=== PATIENT | female | born 1995 | race Caucasian/White ===

== ENCOUNTER 2017-10-01 04:18 | Emergency (ER) | payer OTHER ==
[2017-10-01] MEDS ORDERED: BENADRYL 50 MG/ML IV ONE (05:05)
[2017-10-01] MEDS ORDERED: Sodium Chloride 0.9% 1000 ML 1,000 ML IV STA ×2 (05:05→05:33)
[2017-10-01] MEDS ORDERED: Zofran 4 MG/2 ML VIAL IV ONE (05:05)
--- NOTE | 2017-10-01 05:08 | ERPHSYRPT ---
- History of Present Illness Time Seen by Provider: 10/01/17 05:07 Historian: patient Exam Limitations: no limitations Physician History: 22-year-old female came to the emergency room with complaining of lower abdominal pain associated with greenish color, vomiting. Patient denies any fever or chills. Symptoms started around 9 PM last night. Patient is currently having menstrual period. Timing/Duration: today Quality: cramping Abdominal Pain Onset Location: suprapubic Pain Radiation: no radiation Severity of Pain-Max: moderate Severity of Pain-Current: moderate Modifying Factors: Improves With: nothing Associated Symptoms: vomiting Previous symptoms: no prior history - Review of Systems Constitutional: No Fever, No Chills Eyes: No Symptoms Ears, Nose, & Throat: No Symptoms Respiratory: No Cough, No Dyspnea Cardiac: No Chest Pain, No Edema, No Syncope Abdominal/Gastrointestinal: Abdominal Pain, Nausea, Vomiting, No Diarrhea Genitourinary Symptoms: No Dysuria Musculoskeletal: No Back Pain, No Neck Pain Skin: No Rash Neurological: No Dizziness, No Focal Weakness, No Sensory Changes Psychological: No Symptoms Endocrine: No Symptoms All Other Systems: Reviewed and Negative - Physical Exam General Appearance: no apparent distress, alert Eye Exam: PERRL/EOMI, eyes nml inspection Ears, Nose, Throat Exam: normal ENT inspection, pharynx normal, moist mucous membranes Neck Exam: normal inspection, non-tender, supple, full range of motion Respiratory Exam: normal breath sounds, lungs clear, No respiratory distress Cardiovascular Exam: regular rate/rhythm, normal heart sounds Gastrointestinal/Abdomen Exam: soft, No tenderness, No mass Back Exam: normal inspection, normal range of motion, No CVA tenderness, No vertebral tenderness Extremity Exam: normal inspection, normal range of motion, pelvis stable Neurologic Exam: alert, oriented x 3, cooperative, normal mood/affect, nml cerebellar function, sensation nml, No motor deficits Skin Exam: normal color, warm, dry - Course Nursing assessment & vital signs reviewed: Yes Ordered Tests: Active Orders 24 hr Category Date Time Status AMYLASE Stat Lab 10/01/17 05:10 Completed CBC W DIFF Stat Lab 10/01/17 05:10 Completed CMP Stat Lab 10/01/17 05:10 Completed LIPASE Stat Lab 10/01/17 05:10 Completed Lactic Acid Stat Lab 10/01/17 05:05 Results UA W/RFX UR CULTURE Stat Lab 10/01/17 05:48 Received Medication Summary Generic Name Dose Route Start Last Admin Trade Name Yvette PRN Reason Stop Dose Admin Sodium Chloride 1,000 mls @ 999 mls/hr 10/01/17 05:05 10/01/17 05:34 Sodium Chloride 0.9% 1000 Ml IV 10/01/17 06:05 999 mls/hr .Q1H1M STA Administration Sodium Chloride 1,000 mls @ 999 mls/hr 10/01/17 05:33 Sodium Chloride 0.9% 1000 Ml IV 10/01/17 06:33 .Q1H1M STA Ceftriaxone Sodium/Dextrose 1 g in 50 mls @ 100 mls/hr 10/01/17 05:35 Rocephin 1 Gm-D5w 50 Ml Bag IV 10/01/17 06:04 STAT STA Discontinued Medications Generic Name Dose Route Start Last Admin Trade Name Yvette PRN Reason Stop Dose Admin Diphenhydramine HCl 25 mg 10/01/17 05:05 10/01/17 05:33 Benadryl 50 Mg/Ml IV 10/01/17 05:06 25 mg STAT ONE Administration Diphenhydramine HCl Confirm 10/01/17 05:32 Benadryl 50 Mg/Ml Administered 10/01/17 05:33 Dose 50 mg .ROUTE .STK-MED ONE Sodium Chloride Confirm 10/01/17 05:32 Sodium Chloride 0.9% 1000 Ml Administered 10/01/17 05:33 Dose 1,000 mls @ ud .ROUTE .STK-MED ONE Ondansetron HCl 4 mg 10/01/17 05:05 10/01/17 05:34 Zofran 4 Mg/2 Ml Vial IV 10/01/17 05:06 4 mg STAT ONE Administration Ondansetron HCl Confirm 10/01/17 05:31 Zofran 4 Mg/2 Ml Vial Administered 10/01/17 05:32 Dose 4 mg .ROUTE .STK-MED ONE Lab/Rad Data: Laboratory Result Diagrams 10/01/17 05:10 10/01/17 05:10 Laboratory Results 10/01/17 10/01/17 10/01/17 Range/Units 05:10 05:10 05:05 WBC 19.1 H (4.0-10.5) K/mm3 RBC 5.46 H (4.1-5.4) M/mm3 Hgb 13.5 (12.0-16.0) gm/dl Hct 40.3 (35-47) % MCV 73.8 L (78-100) fl MCH 24.7 L (26-32) pg MCHC 33.5 (32-36) g/dl RDW 14.7 H (11.5-14.0) % Plt Count 472 H (150-450) K/mm3 MPV 8.7 (6-9.5) fl Gran % 89.1 H (36.0-66.0) % Eos # (Auto) 0.03 (0-0.5) Absolute Lymphs (auto) 1.40 (1.0-4.6) Absolute Monos (auto) 0.63 (0.0-1.3) Lymphocytes % 7.3 L (24.0-44.0) % Monocytes % 3.3 (0.0-12.0) % Eosinophils % 0.2 (0.00-5.0) % Basophils % 0.1 (0.0-0.4) % Absolute Granulocytes 17.00 H (1.4-6.9) Basophils # 0.02 (0-0.4) Sodium 139 (137-145) mmol/L Potassium 4.1 (3.5-5.1) mmol/L Chloride 106 (98-107) mmol/L Carbon Dioxide 19 L (22-30) mmol/L Anion Gap 17.4 H (5-15) MEQ/L BUN 10 (7-17) mg/dL Creatinine 0.64 (0.52-1.04) mg/dL Estimated GFR > 60.0 ML/MIN Glucose 152 H (74-106) mg/dL Lactic Acid 3.4 H (0.4-2.0) Calcium 9.5 (8.4-10.2) mg/dL Total Bilirubin 0.30 (0.2-1.3) mg/dL AST 17 (14-36) U/L ALT 17 (0-35) U/L Alkaline Phosphatase 118 (38-126) U/L Serum Total Protein 7.3 (6.3-8.2) g/dL Albumin 4.3 (3.5-5.0) g/dL Amylase 39 (30-110) U/L Lipase 54 (23-300) U/L - Progress Progress: improved, pain not gone completely Counseled pt/family regarding: lab results, diagnosis, need for follow-up - Departure Time of Disposition: 07:00 Departure Disposition: Home Clinical Impression: Cystitis UTI (urinary tract infection) Qualifiers: Urinary tract infection type: acute cystitis Hematuria presence: without hematuria Qualified Code(s): N30.00 - Acute cystitis without hematuria Ovarian cyst Qualifiers: Laterality: unspecified laterality Qualified Code(s): N83.209 - Unspecified ovarian cyst, unspecified side Condition: Stable Critical Care Time: Yes Critical Care Time(excluding separately billable procedures): 30-74 minutes Referrals: DOCTOR,NO FAMILY [Primary Care Provider] - Instructions: Acute Abdomen (Belly Pain) Additional Instructions: ABDOMINAL PAIN 1. There are several different causes for abdominal pain, some of which may not be able to be identified on initial examination. 2. The important thing to remember is that bodily functions can change in a short period of time. If you notice any of the following symptoms, return to the emergency department or consult your doctor immediately: A. Worsening pain or no improvement in the next 12 hours. B. Increasing, severe abdominal pain C. Blood in stool D. Black stools E. Persistent vomiting F. Fever or chills or other symptoms URINARY TRACT INFECTION 1. You will need to drink plenty of fluids in order to keep your urinary system flushed. These fluids should mainly consist of water and juices. 2. Take medications as directed. You need to completely finish any antiobiotic prescription given. 3. Try to avoid coffee, tea, alcohol, and seasoned foods as they may cause bladder irritation. 4. If signs and symptoms persist after 3-4 days, you will need to follow up with your family physician. 5. Female Patients: A. Avoid intercourse for 3-4 days. B. Empty bladder before and after intercourse to reduce risk of re- infection. C. After emptying bladder, wipe from front to back to reduce the risk of re- infection. VOMITING AND DIARRHEA 1. Take only small amounts of clear, cool liquids at frequent intervals as tolerated for the next 24-48 hours. Avoid milk products and orange juice. Clear liquids are those liquids which you can see through. 2. Pedialyte and popsicles are recommended clear liquids. 3. If the condition worsens you should contact your family physician or return to the emergency department for re-evaluation. JAIR IGNACIO was seen on 10/01/17 n the Emergency Room. At that time you were treated for an emergent condition, during your visit Laboratory, Radiology and/or other procedures may have been ordered. It is very important that you follow-up with your Primary Care Physician NO FAMILY DOCTOR within the next 24-48 hours to review your Emergency Room visit and the final results of testing that was ordered. Some test results such as Urine Cultures, Blood Cultures, and other cultures if ordered will not be finalized for 24-48 hours. If you do not have a Primary Care Provider please call the medical records department at [phone] to obtain a copy of your results or you may sign into our patient portal to obtain these results by visiting us @ [email or web address] and completing the following steps: 1. Click on the Patient Portal link 2. Click the Patient Self Enrollment Link to complete the enrollment form and entering your 3. Once the enrollment form is completed you will receive an email with a temporary ID and password at the email address you provided. 4. Next choose a user name and password. Your user name must be at least 4 characters long and your password must be at least 4 characters long. 5. Choose a security question from the list and provide your answer to the question. If you already have signed into the Health Portal you may access your Health Care Information 11/10 by the following steps: 1. Login to our website @ [email or web address] 2. Enter your original user name and password. FAQS The [facility] Health Portal is an online tool that contains your Lab Results, Radiology Reports, Visit History, Discharge Instructions and Health Summary Lab and Radiology Results will not be available for 72 hours on the portal. The Portal is a secure site, passwords are encryted and URLs are re-written so they cannot be copied and pasted. You and authorized family members are the only ones who can access your Portal. Also there is a timeout feature that protects your information if you leave the Portal page open. If you have technical difficulty please use the Contact Us link on the page this will allow you to submit any questions you have regarding the Portal or you may contact the Medical Record Department at [phone]. Prescriptions: Ciprofloxacin [Cipro 500 MG] 500 mg PO BID #15 tablet Naproxen 375 mg [Naprosyn 375 mg] 375 mg PO Q8H #30 tablet Promethazine HCl 25 mg [Phenergan 25 mg] 25 mg PO QID #20 tablet
[2017-10-01 05:14] LABS: BASOPHIL % 0.1 % (0.0-0.4); Basophil (Absolute #) 0.02 (0-0.4); Eosinophil % 0.2 % (0.00-5.0); Eosinophil (Absolute #) 0.03 (0-0.5); Granulocytes % 89.1 % (36.0-66.0); Hematocrit 40.3 % (35-47); Hemoglobin 13.5 gm/dl (12.0-16.0); Lymphocytes % 7.3 % (24.0-44.0); Mean Cell Volume 73.8 fl (78-100); Mean Corpuscular Hemoglobin 24.7 pg (26-32); Mean Corpuscular Hgb Concent. 33.5 g/dl (32-36); Mean Platelet Volume 8.7 fl (6-9.5); Monocyte (Absolute #) 0.63 (0.0-1.3); Monocytes % 3.3 % (0.0-12.0); Platelet Count 472 K/mm3 (150-450); Red Blood Count 5.46 M/mm3 (4.1-5.4); Red Cell Distribution Width 14.7 % (11.5-14.0); White Blood Count 19.1 K/mm3 (4.0-10.5)
[2017-10-01 05:16] LABS: Lactic Acid 3.4 (0.4-2.0)
[2017-10-01 05:25] LABS: ALBUMIN 4.3 g/dL (3.5-5.0); ALKALINE PHOSPHATASE 118 U/L (38-126); AMYLASE 39 U/L (30-110); ANION GAP 17.4 MEQ/L (5-15); BLOOD UREA NITROGEN 10 mg/dL (7-17); CHLORIDE 106 mmol/L (98-107); Calcium 9.5 mg/dL (8.4-10.2); Carbon Dioxide 19 mmol/L (22-30); Creatinine 1 0.64 mg/dL (0.52-1.04); Glucose 152 mg/dL (74-106); LIPASE 54 U/L (23-300); Potassium 4.1 mmol/L (3.5-5.1); SGOT/AST 17 U/L (14-36); SODIUM 139 mmol/L (137-145); Total Protein 7.3 g/dL (6.3-8.2)
[2017-10-01] MEDS ORDERED: Zofran 4 MG/2 ML VIAL ONE (05:31)
[2017-10-01 05:32] LABS: SGPT/ALT 17 U/L (0-35)
[2017-10-01] MEDS ORDERED: Sodium Chloride 0.9% 1000 ML 1,000 ML ONE ×2 (05:32→06:22)
[2017-10-01] MEDS ORDERED: BENADRYL 50 MG/ML ONE (05:32)
[2017-10-01] MEDS ORDERED: ROCEPHIN 1 Gm-D5w 50 ml Bag** 1 G/50 ML IVPB IV STA (05:35)
[2017-10-01] MEDS ORDERED: ROCEPHIN 1 Gm-D5w 50 ml Bag** 1 G/50 ML IVPB IV ONE (06:08)
[2017-10-01 06:40] LABS: Appearance CLOUDY (CLEAR); Leukocyte Esterase 2+ (NEGATIVE); Nitrite POSITIVE (NEGATIVE); Protein,Urine Dip 30 (Negative)
[2017-10-01 06:41] LABS: Bacteria MODERATE /HPF (NEGATIVE); Bilirubin NEGATIVE (NEGATIVE); Blood 250 Ery/ul (0-5); Epithelial Cells MODERATE /HPF (FEW); Glucose NEGATIVE (NEGATIVE); Ketones SMALL (NEGATIVE); RBC >100 /HPF (0-2); Urobilinogen NORMAL mg/dL (0-1)
[2017-10-01 07:24] VITALS: BP 138/89; PULSE 95; O2SAT 100
== END 2017-10-01 07:24 | disposition home or self-care (01) ==
LOC: ED 04:18
DX: N30.90 Cystitis, unspecified without hematuria (principal); N83.209 Unspecified ovarian cyst, unspecified side
CPT/HCPCS: 36415; 80053; 81000; 82150; 83605; 83690; 85025; 87086; 96360; 96365; 96374; 96375; 99284; J0696; J1200; J2405